=== PATIENT | male | born 1965 | race Caucasian/White ===

== ENCOUNTER → 2022-03-06 | Day surgery (SDC) | payer MEDICARE ==
[~2022-03-06] VITALS: Ht 185.4 cm; Wt 111.1 kg
[~2022-03-06] MED LIST: DAILY VITE1 EACH PO; PRINIVIL10 MG PO; PROTONIX 40MG T40 MG PO; ZOCOR40 MG PO
== END | disposition home or self-care (01) ==
LOC: FAS 07:57
DX: Z12.11 Encounter for screening for malignant neoplasm of colon (principal); K31.7 Polyp of stomach and duodenum; K44.9 Diaphragmatic hernia without obstruction or gangrene; K57.30 Diverticulosis of large intestine without perforation or abscess without bleeding; K31.9 Disease of stomach and duodenum, unspecified; K21.9 Gastro-esophageal reflux disease without esophagitis; I10 Essential (primary) hypertension; E78.00 Pure hypercholesterolemia, unspecified; Z79.899 Other long term (current) drug therapy; Z72.89 Other problems related to lifestyle
CPT/HCPCS: 43239; G0121; J2250; J2704; J7120